=== PATIENT | female | born 1990 | race African-American/Black ===

== ENCOUNTER 2021-02-10 09:24 | Emergency (ER) | payer OTHER, MEDICAID ==
[~2021-02-10] VITALS: Ht 175.3 cm; Wt 110.0 kg
[2021-02-10 09:40] VITALS: BP 110/71
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
== END 2021-02-10 11:09 | disposition home or self-care (01) ==
LOC: ER 09:24
DX: M54.50 Low back pain, unspecified (principal); G89.11 Acute pain due to trauma; V49.49XA Driver injured in collision with other motor vehicles in traffic accident, initial encounter; Y93.89 Activity, other specified; Y92.488 Other paved roadways as the place of occurrence of the external cause; Y99.8 Other external cause status
CPT/HCPCS: 72131; 81025; 99284-25